=== PATIENT | female | born 1995 | race Two or more races ===

== ENCOUNTER 2021-12-07 08:08 | Outpatient (CLI) | payer OTHER | END 2021-12-07 09:00 | disposition home or self-care (01) | LOC: PRENATAL 08:08 | PROVIDERS: ATTEND Obstetrics & Gynecology Maternal & Fetal Medicine | DX: O36.80X0 Pregnancy with inconclusive fetal viability, not applicable or unspecified (principal); Z36.0 Encounter for antenatal screening for chromosomal anomalies; Z3A.13 13 weeks gestation of pregnancy ==

== ENCOUNTER 2022-01-25 07:49 | Outpatient (CLI) | payer OTHER | END 2022-01-25 09:08 | disposition home or self-care (01) | LOC: PRENATAL 07:49 | PROVIDERS: ATTEND Obstetrics & Gynecology Maternal & Fetal Medicine | DX: O35.0XX0 Maternal care for (suspected) central nervous system malformation in fetus, not applicable or unspecified (principal); O35.3 Maternal care for (suspected) damage to fetus from viral disease in mother; Z3A.20 20 weeks gestation of pregnancy ==

== ENCOUNTER 2022-06-11 12:02 | Inpatient (IN) | payer OTHER ==
[~2022-06-11] VITALS: Ht 157.5 cm; Wt 3.2 kg
[2022-06-13] MEDS ORDERED: PRENATAL TABLE1 EAC1 PO (10:10)
[2022-06-16] MEDS ORDERED: IBUPROFEN800 MG PO (10:09)
== END 2022-06-16 12:30 | disposition home or self-care (01) | DRG 788 ==
LOC: LDR 12:02 → OB/GYN 06-13 08:16
PROVIDERS: ADMIT Obstetrics & Gynecology; ATTEND Obstetrics & Gynecology
PROC: 4A1HXCZ Monitoring of Products of Conception, Cardiac Rate, External Approach (ICD-10-PCS; 2022-06-13)
PROC: 10D00Z1 Extraction of Products of Conception, Low, Open Approach (ICD-10-PCS; principal; 2022-06-13 18:00)
DX: O33.8 Maternal care for disproportion of other origin (principal); O36.8130 Decreased fetal movements, third trimester, not applicable or unspecified; Z3A.40 40 weeks gestation of pregnancy; Z37.0 Single live birth; Z20.822 Contact with and (suspected) exposure to COVID-19

== ENCOUNTER → 2022-06-11 | Outpatient (CLI) | payer OTHER ==
[~2022-06-11] MED LIST: IBUPROFEN800 MG PO; PRENATAL TABLE1 EAC1 PO
== END | disposition left against medical advice (07) ==
LOC: OBS/DEL 15:36
PROVIDERS: ATTEND Obstetrics & Gynecology
DX: O26.893 Other specified pregnancy related conditions, third trimester (principal); Z3A.40 40 weeks gestation of pregnancy